=== PATIENT | female | born 1990 | race Caucasian/White ===

== ENCOUNTER 2017-03-24 18:16 | Emergency (ER) | payer MEDICAID ==
[2016-08-25 07:13] VITALS: BMI 29.1
[~2017-03-24 18:16] MED LIST: IBUPROFEN600 MG PO; MOTRIN600 MG PO; PERCOCET 5-3251 TAB PO; PERCOCET 5/3251 TA1 PO; PRENATAL COMPLE1 TAB PO; ULTRAM50 MG PO
== END 2017-03-24 20:21 | disposition home or self-care (01) ==
LOC: D.ER 18:16
DX: L02.211 Cutaneous abscess of abdominal wall (principal)

== ENCOUNTER 2021-04-17 07:41 | Emergency (ER) | payer MEDICAID ==
[~2021-04-17] VITALS: Ht 139.7 cm; Wt 46.6 kg
[2021-04-17 08:31] VITALS: Ht 139.7 cm; Wt 46.6 kg
[2021-04-17 08:39] VITALS: BP 157/97
== END 2021-04-17 07:55 | disposition home or self-care (01) ==
LOC: D.ER 07:41
DX: Z71.1 Person with feared health complaint in whom no diagnosis is made (principal)